=== PATIENT | female | born 1990 | race Caucasian/White ===

== ENCOUNTER → 2017-10-01 08:34 | Outpatient (CLI) | payer OTHER, SELFPAY ==
--- NOTE | 2017-10-01 | IMM_PTH ---
PATIENT: RAMYA JENNINGS LOC: [facility] U#:[id number] AGE/SX: 34/F ROOM: RE10/01/[address]: Dr. Pauline Malone MD : 1990 BED: DIS: SPEC #: [id number] RECD: 10/05/17 14:15 STATUS: MISSY EZIO #: [id number] KELLY: 10/01/17 00:[address]: Pauline Malone DEPT: IMMUNOHISTOCHEMISTRY RECD BY: Ana Salazar Tissues: B - Uterine cervix, NOS Procedures: p16 (initial) KI-67 (add) PHYSICIAN & INSTITUTION [place] [id number] SPECIMEN INFORMATION: Tissue Source: B ? Cervix at 6 o?clock Clinical Info: Abnormal pap smear Specimen Number: [id number] CPT code: 00656, 68547 METHODOLOGY: Deparaffinized sections of prefer/formalin-fixed tissue or PAP/DQ stained slides are incubated with monoclonal/polyclonal antibodies/oligonucleotide probes. Localization is made via biotin free immunoperoxidase method. Appropriate controls are performed and reacted as expected. Results on target cell population are indicated in the following table: RESULTS: ANTIBODY / CLONE RESULT Block B P16 (E6H4) positive, focal, patchy Ki-67 (30-9) positive, low These tests were developed and their performance characteristics determined by [facility]. They may not have been cleared or approved by the U.S. Food and Drug Administration. The FDA has determined that such clearance or approval is not necessary. INTERPRETATION: B. Cervix at 6 o?clock, biopsy: Mild squamous dysplasia, KATERIN I (LSIL). AM:zeny 10/06/17
--- NOTE | 2017-10-01 | CER_PTH ---
PATIENT: RAMYA JENNINGS [facility][id number] AGE/SX: 34/F ROOM: RE10/01/[address]: Dr. Pauline Malone MD : 1990 BED: DIS: SPEC #: [id number] RECD: 10/01/17 12:22 STATUS: MISSY EZIO #: [id number] KELLY: 10/01/17 00:[address]: Pauline Malone DEPT: SURGICAL PATHOLOGY RECD BY: Mohsen Mendoza Tissues: A - Uterine cervix, NOS B - Uterine cervix, NOS Procedures: Surgery Specimen Level IV HEADER OPERATION: Colposcopy PRE-OP DIAGNOSIS: Abnormal pap smear TISSUE SUBMITTED: A ? Cervix at 12 o?clock, B - Cervix at 6 o?clock MICROSCOPIC DIAGNOSIS A. Cervix at 12 o?clock, biopsy: Fragments of endocervix with chronic inflammation. B. 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 AM:zeny 10/05/17 COMMENT B. Results from immunohistochemistry ([id number]) for surrogate HPV marker (p16) will be reported separately. Case has been reviewed in consultation with Dr. Cummings who concurs with the above diagnosis. INDRA:JAMIE MICROSCOPIC DESCRIPTION Slides are reviewed. GROSS DESCRIPTION A - Received in fixative is one container labeled with the patient's name and designated 12 o'clock. The specimen consists of one irregular fragment of light tafoya soft tissue that measures 0.6 x 0.3 x 0.1 cm. The specimen is totally submitted in one cassette. B - Received in fixative is one container labeled with the patient's name and designated 6 o'clock. The specimen consists of one irregular fragment of light tafoya soft tissue that measures 0.2 x 0.2 x 0.1 cm. The specimen is totally submitted in one cassette. / JAMIE:zeny 10/04/17 TC:3 CPT: 99322 x2
== END ==
PROVIDERS: Visit Provider Obstetrics & Gynecology
DX: R87.619 Unspecified abnormal cytological findings in specimens from cervix uteri (principal)
CPT/HCPCS: 88305; 88341; 88342

== ENCOUNTER 2022-12-10 06:13 | Day surgery (SDC) | payer OTHER, BC, SELFPAY ==
[2022-12-10 06:43] VITALS: BP 118/69; PULSE 72; RESP 16; TEMP 36.3; O2SAT 99; BMI 31.6
[2022-12-10 06:52] LABS: Internal QC Validated? YES +Cl - CLEAR BKGD; Pregnancy, Urine Negative Negative
[2022-12-10] MEDS: Lactated Ringers 1,000 ML 15 ML IV (06:52)
[2022-12-10] MEDS: Cefazolin 2 GM in 0.9% Normal Saline (100mL Bag) 100 ML IV (07:42)
[2022-12-10] MEDS: Epinephrine (1 mg/ml) 1 MG/ML VIAL (08:01)
[2022-12-10] MEDS: Bupivacaine 0.25% 30 ML Vial (10:04)
[2022-12-10 10:29] VITALS: BP 118/69; BP 138/89; PULSE 67; RESP 16; TEMP 36.3; O2SAT 100
[2022-12-10] MEDS: Ketorolac 30 MG/ML Syringe IV (10:37)
[2022-12-10 10:45] VITALS: BP 118/69; BP 132/99; PULSE 75; RESP 16; O2SAT 95
--- NOTE | 2022-12-10 10:47 | PCM.DC ---
Discharge Instructions Follow Up Care Test Results: Test results from this visit will be discussed in further detail at your follow-up appointment, if applicable. Discharge Plan Admission Primary Reason for Your Visit: Left knee surgery Attending Provider: Lul Espinal Primary Care Provider: Ace Mac EXTERMINATION SUPERVISOR Instructions Additional Instructions / Restrictions: Follow preprinted instructions Discharge Orders/Prescriptions Prescriptions: New oxycodone 5 mg tablet 5 mg PO Q4H PRN (Reason: pain) 7 Days Qty: 42 0RF Continued cholecalciferol (vitamin D3) [Vitamin D3] 25 mcg (1,000 unit) capsule 50 mcg PO DAILY Referrals / Follow Up: Lul Espinal DO [Med Staff - Active Staff] - Disposition Disposition (needs filled in before D/C Order can be placed): Home, Self Care
--- NOTE | 2022-12-10 10:47 | PCM.OPRPT ---
Report of Operation Date of Procedure: 12/10/22 Description of Surgical Findings:: Preoperative diagnosis: 1. Left knee anterior cruciate ligament rupture 2. Left knee bucket-handle medial meniscus tear Postoperative diagnosis: 1. Left knee anterior cruciate ligament rupture 2. Left knee bucket-handle medial meniscus tear Procedure: 1. Diagnostic and operative Left knee arthroscopy with quadriceps autograft anterior cruciate ligament reconstruction 2. Arthroscopic left knee medial meniscus repair Primary Surgeon: Lul Espinal DO Manager Configuration: Cynthia Petersen PA-C Anesthesia: General LMA with femoral nerve block Anesthesiologist: DEJAH Moncada Dr. Complications: None apparent Estimated blood loss: 25 cc IV fluids: Per anesthesia record Implants: Arthrex tight rope femoral fixation with ABS button tibial sided fixation, suture tape internal brace Arthrex fiber stitch all inside all suture meniscal repair system x4 Arthrex 2-0 FiberWire x3 Intraoperative findings: Complete ACL rupture, bucket-handle medial meniscus tear Preoperative indications: This is an otherwise healthy 32-year-old female seen in the outpatient setting diagnosed with a left knee anterior cruciate ligament rupture and bucket-handle medial meniscus tear. She sustained injury falling down stairs 5 months ago. Patient was seen in [place] and an MRI confirmed the diagnosis. She rehabbed her knee and regain full motion and excellent strength. She did experience considerable instability and avoidance of specific activities after rehab. Operative intervention in the form of left knee anterior cruciate ligament reconstruction was recommended. We discussed graft options. We settled on a quadriceps autograft. The risk, benefits, alternatives to the procedure was reviewed with the patient at length. Risks included but were not limited to bleeding, wound complications, infection, loss of life or limb, need for additional surgery, continued instability, persistent pain, posttraumatic arthritis, stiffness, difficulty returning to sport, risk of anesthesia, DVT or PE, neurovascular injury. Patient expressed understanding his risks and wished to proceed with surgery. Informed consent obtained in the office. Description of procedure: Patient was identified in preoperative holding area by name, medical record number, and date of . The operative extremity was marked. Informed consent confirmed with the patient. All questions were answered to patient satisfaction. At time of her procedure, patient was brought to the operative suite and positioned supine on a standard operating table. All bony prominences were well-padded. General anesthesia was induced and laryngeal mask airway placed. After securing the tube, I placed a well-padded pneumatic tourniquet on the upper thigh of the operative extremity. I first examined the leg under anesthesia. There was a positive pivot shift and Christ. We then positioned the operative extremity in a circumferential arthroscopic leg muniz. A well-leg muniz was placed on the patient's nonoperative thigh. We then dropped the foot of the bed 90 degrees. We then prepped and draped the operative lower extremity in a normal, sterile orthopedic fashion. We performed a timeout with all parties in attendance in agreement with the side, site, operation to be performed. No concerns were voiced and we elected to proceed with surgery. 2 g Ancef was administered for antibiotic prophylaxis prior to the incision by the anesthesia staff. Given the positive provocative findings and positive MRI findings consistent with ACL rupture, I elected to harvest the graft first. I planned a midline incision overlying the quadriceps tendon approximately 5 cm in length. Skin was sharply incised with a 15 blade scalpel through skin and subcutaneous tissue. Subcutaneous fat was cleared exposing the peritenon of the quadriceps. The quadriceps peritenon was carefully elevated and dissected free from the underlying tendon, in line with the skin incision. I then identified the insertion of the tendon on the superior pole of the patella. I utilized the parallel cutting guide 9 mm in diameter to establish the width of our tendon harvest. I sharply dissected the insertion off of the patella. I elevated a partial thickness graft. After gaining approximately 4 cm in length, I performed a whipstitch for fixation into the tendon with a FiberWire suture. I then utilized a arauz elevator and scalpel to continue to elevate the graft. I was able to elevate the tendon graft free to a length of 67 millimeters. This was cut sharply with the cigar cutting instrument from [employer]. The void in the quadriceps was then closed with 0 Vicryl suture. Peritenon was closed with 2-0 Vicryl suture in watertight fashion. The graft was moved to the back table where my elementary assistant teacher, Mrs. Petersen, began to prepare the graft. She prepared a standard all inside fixation with a tight rope attachment on the femoral side. A suture tape was added to the construct to act as an internal brace. The graft was pretensioned. After the graft was prepared, it was left under tension and kept fresh with a moist sponge. 8 mm was the final graft diameter for both the tibial and femoral sides. During time of graft preparation, I commenced diagnostic and operative arthroscopy. Establish a standard anterolateral portal with an 11 blade scalpel. Blunt tipped trocar and cannula was inserted through this portal as the knee was brought into full extension into the patellofemoral joint. Trocar was removed and arthroscope introduced. Examination of the knee revealed pristine patellofemoral compartment. Medial lateral gutters were unremarkable. Medial compartment was entered with a valgus stress. Bucket-handle tearing was noted in the medial compartment. Minimal scuffing was noted along the femoral condyle, otherwise cartilage was pristine. I entered the intercondylar notch. ACL rupture was confirmed with an empty lateral wall. Lateral compartment was entered. The leg was placed in a [id number] position. Lateral compartment was pristine and meniscus stable. I returned my attention to the medial compartment. A meniscal rasp was used to debride the longitudinal tear. The meniscus was resting in a relatively reduced position. I then proceeded with sequential fixation of the medial meniscus placing 4 horizontal mattress sutures utilizing the Arthrex fiber stitch all inside suture repair system. Sutures were tensioned and cut flush with the meniscus. This achieved excellent stability and reduction from the mid body to the posterior horn. With the more anterior portion of the tear, elected to perform an outside in repair technique. I localized with a spinal needle and then performed a 2 cm longitudinal incision overlying the anterior medial knee. I bluntly dissected down to the level of the retinaculum. I then used a spinal needle to pass a loop of 0 PDS suture superior to the meniscal tear. A second spinal needle was placed inferior to the PDS needle. 2-0 FiberWire was then placed through the second spinal needle and retrieved out the anterior medial portal along with the PDS loop. PDS loop was used to shuttle the FiberWire. A vertical mattress repair stitch was then achieved. Suture was tensioned and tied and cut flush with the knot. Similar repairs were sequentially carried out working anteriorly with a total of 3 outside in vertical mattress sutures placed with 2-0 FiberWire. The medial meniscus was probed and was stable following repair. The remnants of the ACL was then encountered. ACL rupture was confirmed. I resected the remaining portion of the ACL with a radial resector, marking the footprints with the radiofrequency ablator. I then performed a notchplasty in standard fashion with a 5.5 mm bur. I then introduced the flip cutter drill guide through the anterior lateral portal and the camera was moved to the anterior medial portal. I positioned the drill guide to allow for 2 mm of back wall at approximately the 1:30 position on the lateral wall of the notch. I made a stab incision along the lateral thigh in line with the planned trajectory of the flip cutter. Skin, subcutaneous tissue, and IT band were sharply incised and dilated. Drill guide and drill were then passed down to the level of the lateral femoral cortex. We drilled through the lateral cortex into the intercondylar notch at the planned trajectory location. The flip cutter was then deployed to a diameter of 8 mm. The flip cutter was then used to retrograde drill the femoral socket to a depth of 35 mm. Flip cutter was then retracted and pulled from the wound. A fiber stick was then introduced through the femoral socket. The fiber wire was then retrieved out the anterior lateral portal and luggage tagged. Loose pieces of bone was debrided with a radial resector from the knee. I then switched the camera to the lateral portal. I placed the tibial drill guide through the anterior medial portal planning be tunnel placement at the red devil footprint of the ACL. I sharply incised the skin with an 11 blade scalpel through skin and subcutaneous tissues over the anterior medial tibia with planned trajectory of the drill course. I then drilled through the anterior medial tibia into the joint at the planned trajectory. I deployed the flip cutter to a diameter of 8 mm and drilled retrograde fashion for the tibial socket, approximately 30 mm in length. I then reversed the flip cutter to 3.5 mm and removed from the joint. I placed a tiger stick through the tibial tunnel and retrieved out the anterior medial portal. I then brought the graft to the surgical field. I retrieved the loop end of the femoral side shuttling suture through the anterior medial portal and attached to the suture ends of the femoral side button of the graft. We then passed the sutures and button through the femoral tunnel. The tight rope button was then deployed and engaged the lateral femoral cortex. We then sequentially tightened the graft to docket into the femoral tunnel. I then retrieve the passing suture for the tibial tunnel at the anteromedial portal and utilized it to pass the tibial side of the graft/sutures. Sutures were then retrieved out the tibial tunnel. I placed an ABS button through the tight rope mechanism is sequentially tightened to appropriate, maximum tension. The knee was then cycled 25 times to prevent creep. Final tightening was performed in full extension. The internal brace was tensioned and tied in full extension. I tied 3 half hitch knots over the tibial button with the tight rope. Sutures were then cut. The knee was thoroughly debrided lavage of any loose pieces of bone. Final images were obtained. Tourniquet was deflated. Hemostasis was excellent. Portal sites were anesthetized with 20 cc total of 0.25% plain bupivacaine. Stab incisions were closed with interrupted lionhb-od-curof 4-0 nylon suture. Graft harvest incision was closed with interrupted buried 3-0 Vicryl suture in the dermis and a running subcuticular 4-0 Monocryl suture. Dermabond was then applied. A bulky sterile compression dressing was applied. Patient was placed in a T ROM brace locked in full extension with a limited set from 0 to 90 degrees. Need for skilled elementary assistant teacher: Cynthia Petersen PA-C was critical to the outcome of the case. During the course of the procedure the physician elementary assistant teacher played a vital role. Her intimate knowledge of my steps in the procedure aided in safe and expedient completion of the procedure. The PA played a vital role in positioning particularly in obtaining the appropriate positioning. The PA was also vital in the retraction of soft tissues during the exposure and protecting vital structures. The PA was also vital with drilling bone tunnels, graft passage, and graft preparation. She also played a vital role in closure and brace application with my direct supervision. Postoperative plan: Weightbearing as tolerated left lower extremity, knee brace locked in full extension when ambulating. 0-90 degrees range of motion. Follow-up in 2 weeks for wound check and suture removal Plan initiate physical therapy tomorrow Aspirin 81 mg twice daily for DVT prophylaxis Multimodal pain management with oxycodone, acetaminophen, and ibuprofen Ice and elevation to the operative knee
[2022-12-10 10:58] VITALS: BP 118/69; BP 135/91; PULSE 77; RESP 16; TEMP 36.4; O2SAT 100
[2022-12-10 11:20] VITALS: BP 118/69
[2022-12-10 12:00] VITALS: BP 118/69; BP 125/80; PULSE 73; RESP 16; TEMP 37; O2SAT 99
== END 2022-12-10 13:19 | disposition home or self-care (01) ==
LOC: SDC 06:15 → AC 06:17
PROVIDERS: Anesthesiology; PCP Nurse Practitioner Primary Care; Referring Provider Student in an Organized Health Care Education/Training Program; Visit Provider Student in an Organized Health Care Education/Training Program
PROC: (CPT 29888; principal; 2022-12-10 07:10)
DX: S83.512A Sprain of anterior cruciate ligament of left knee, initial encounter (principal); S83.242A Other tear of medial meniscus, current injury, left knee, initial encounter; E66.8 Other obesity; Z68.31 Body mass index [BMI] 31.0-31.9, adult; W18.30XA Fall on same level, unspecified, initial encounter; Y93.66 Activity, soccer; Y92.322 Soccer field as the place of occurrence of the external cause
CPT/HCPCS: 29888; 29882; 01400; 81025; C1713; J7120; J2405

== ENCOUNTER 2023-10-08 21:11 | Emergency (ER) | payer BC, SELFPAY ==
[2023-10-08 21:12] VITALS: BP 152/97; PULSE 77; RESP 16; TEMP 36; O2SAT 99; BMI 32.9
--- NOTE | 2023-10-08 21:30 | RAD_ITS ---
EXAM: XR LEFT ELBOW COMPLETE, 3 OR MORE VIEWS CLINICAL INDICATION: injury TECHNIQUE: Frontal, lateral and oblique views of the left elbow. COMPARISON: No relevant prior studies available. FINDINGS: BONES/JOINTS: There is an anterior dislocation of the humerus in relation to the radius and ulna. No fractures are identified. There is no displacement of the anterior or posterior fat pads. No destructive or sclerotic lesions. SOFT TISSUES: Unremarkable. No soft tissue swelling or gas. No radiopaque foreign body. RAD/Elbow 2 Views IMPRESSION: Dislocation of the elbow. There are no fractures. Electronically Signed: Aniceto Hudson MD at 21:52 EDT ,
--- NOTE | 2023-10-08 21:44 | RAD_ITS ---
EXAM: XR LEFT ELBOW COMPLETE, 3 OR MORE VIEWS CLINICAL INDICATION: post reduction TECHNIQUE: Frontal, lateral and oblique views of the left elbow. COMPARISON: 10/08/2023 at 2134 hours FINDINGS: BONES/JOINTS: There has been a closed reduction of the elbow. The elbow joint space is maintained in anatomic alignment. There are no fractures. There is no displacement of the anterior or posterior fat pads. No destructive or sclerotic lesions. SOFT TISSUES: Unremarkable. No soft tissue swelling or gas. No radiopaque foreign body. RAD/Elbow min 3 Views IMPRESSION: Closed reduction of an elbow dislocation. Alignment is anatomic. Electronically Signed: Aniceto Hudson MD at 22:40 EDT ,
[2023-10-08] MEDS: Ondansetron 4 MG/2 ML Vial IV (22:12)
[2023-10-08] MEDS: Propofol 200 MG/20 ML Vial IV BOLUS (22:12)
[2023-10-08] MEDS: fentaNYL 100 MCG/2 ML Ampul 50 MCG IV (22:12)
[2023-10-08 22:14] VITALS: BP 162/103; PULSE 81; RESP 20; TEMP 36.6; O2SAT 100
--- NOTE | 2023-10-08 22:15 | EX.ED.UPPERE ---
HPI History of Present Illness Chief Complaint: Upper Extremity Injury Informant: patient Narrative Narrative: 33-year-old female was playing soccer tonight when she fell off to her left side. She tried to catch herself. She notes pain in the left elbow. She is right-handed. She denies any hand symptoms. No pain in the shoulder or collarbone. [facility] Medical History Injury of left anterior cruciate ligament Wears glasses Anemia Hx of gastritis Non-smoker Leg cramps History of pain when walking Abnormal Pap smear of cervix Home Medications ?Medication ?Instructions ?Recorded ?Last Taken ?Type hydrocodone-acetaminophen 5-325mg 1 tab PO Q6H PRN PRN Pain 3 days 10/08/23 Unknown Rx 5mg-325mg #12 TABLETS Allergy/AdvReac Type Severity Reaction Status Date / Time No Known Allergies Allergy Verified 10/08/23 21:16 Family History Mother Hypertension Diabetes Father Diabetes Surgical History No history of previous surgery Social History adopted: No household members: family housing: apartment number of children: 0 current occupational status: employed current occupation: [employer] current occupational exposures/hazards: No pets and animals: No history of recent travel: No Smoking Status: Never smoker alcohol intake: never substance use type: does not use seatbelt use: always do you feel safe at home: Yes ROS ROS ED Constitutional Constitutional ED: Denies chills or weight loss Eyes Eyes: Denies change in vision or diplopia ENT ENT ED: Denies ear pain, rhinorrhea or sore throat Cardiovascular Cardiovascular: Denies chest pain, orthopnea, palpitations or racing heartbeat Respiratory/Chest Respiratory/Chest: Denies cough, dyspnea or orthopnea Gastrointestinal Gastrointestinal: Denies abdominal pain, diarrhea, nausea or vomiting Genitourinary Genitourinary ED: Denies dysuria, hematuria or urinary frequency Musculoskeletal Musculoskeletal: Reports other Details: See history of present illness ; Denies arthralgias or myalgias Integumentary Denies abscess or rash Neurologic Neurologic: Denies headache(s) or weakness Psychiatric Psychiatric: Denies anxiety, depression, suicidal ideation or suicidal thoughts Endocrine Endocrinology: Denies polydipsia, polyphagia or polyuria Allergic/Immunologic Allergic/Immunologic ED: Denies mouth swelling, tongue swelling or urticaria EXAM Physical Exam Const Vital Signs: 10/08/23 21:12 Temperature 96.8 F L Temperature Source Temporal Pulse Rate 77 Respiratory Rate 16 Blood Pressure 152/97 H Blood Pressure Mean 115 Pulse Ox 99 Positive well nourished and well developed General Appearance ED: well developed HEENT Reports normocephalic, head/scalp atraumatic and moist mucous membranes Eyes PERRL and EOMs intact bilaterally Neck no lymphadenopathy, supple and no JVD Resp normal respiratory effort and clear to auscultation bilaterally Cardio regular rate, regular rhythm and no murmurs GI normal to inspection, nondistended, normoactive bowel sounds and non-tender Palpation: soft Back/Spine no CVA tenderness and normal ROM Extremity Extremity Narrative: Limited range of motion to the left elbow. Hand appears neurovascularly intact. There appears to be a posterior elbow dislocation. General Extremety ED: Negative for edema General Extremity: Negative for edema Neuro oriented x3 and CN's II-XII intact bilaterally Sensorium / Orientation: alert Motor Exam: strength 5/5 throughout Psych mental status grossly normal Mood & Affect: Negative for depressed or tearful Skin no rashes or lesions noted and no wounds MDM MDM MDM Narrative Medical decision making narrative: Differential diagnosis includes but not limited to fracture dislocation ligamentous tear neurovascular injury. My independent interpretation of the plain films of the left elbow is a posterior dislocation with no obvious fracture. Patient provided informed consent for the use of procedural sedation using propofol for reduction. Patient received 1 mg/kg bolus of propofol followed by aliquots to achieve adequate sedation. Once adequate sedation was achieved I was able to successfully reduce the elbow using standard technique. Postreduction films were obtained before splinting. I my independent interpretation of these postreduction films is no acute fracture. The patient was placed in a well-padded posterior Ortho-Glass splint made by this physician. The patient's ring was removed prior to splinting and given to significant other for safekeeping. Patient was made aware of this when she was fully awake. Patient recovered without any hypoxia hypotension or apnea. She will be discharged home with orthopedic follow-up return if worsening or concerns History & Record Review Discussion w/independent historian: Patient Radiography Diagnostic Testing: Clinical Impression(s) from Imaging Studies Elbow X-Ray 10/08/23 21:30 IMPRESSION: Dislocation of the elbow. There are no fractures. Electronically Signed: Aniceto Hudson MD at 21:52 EDT Reading Location ID and State: [facility] / [place] Tel , Service support , Discharge Plan Triage Chief Complaint: Upper Extremity Injury ED Provider: Jhony Che Dx/Rx/DC Orders Clinical Impression: Fall, Closed posterior dislocation of left elbow Instructions: ED Elbow Dislocation Prescriptions: New hydrocodone-acetaminophen 5-325 mg tablet 1 tab PO Q6H PRN PRN (Reason: Pain) 3 Days Qty: 12 0RF Primary Care Provider: Ace Mac NP Referrals: Lavell Martin MD [Med Staff - Active Staff] - As soon as possible Ace Mac PYROTECHNIC ASSEMBLER, PYROTECHNIC ASSEMBLER-C [Primary Care Provider] - Print Language: Stateless Disposition Disposition: Home, Self Care
[2023-10-08 22:23] VITALS: BP 147/98; BP 149/104; PULSE 110; PULSE 92; PULSE 94; RESP 19; RESP 21; O2SAT 100; O2SAT 22; O2SAT 37
[2023-10-08 22:30] VITALS: BP 144/99; O2SAT 100
[2023-10-08 22:33] VITALS: BP 139/94; O2SAT 100
[2023-10-08 23:00] VITALS: BP 153/93; PULSE 87; RESP 24; TEMP 36.6; O2SAT 99
== END 2023-10-08 23:15 | disposition home or self-care (01) ==
PROVIDERS: Emergency Provider Emergency Medicine; PCP Nurse Practitioner Primary Care; Visit Provider Emergency Medicine
DX: S53.125A Posterior dislocation of left ulnohumeral joint, initial encounter (principal); W18.30XA Fall on same level, unspecified, initial encounter; Y93.66 Activity, soccer; Y92.322 Soccer field as the place of occurrence of the external cause
CPT/HCPCS: 24600; 73070; 73080; 96374; 96375; 99283; J7030; A4216; J2405

== ENCOUNTER 2023-10-19 18:33 | Emergency (ER) | payer BC, SELFPAY ==
[2023-10-19] VITALS (9 sets, daily range): BP systolic 121–154; BP diastolic 71–94; PULSE 65–103; RESP 14–84; TEMP 36.3–36.6; O2SAT 18–100; BMI 26.8
--- NOTE | 2023-10-19 19:15 | RAD_ITS ---
STUDY: X-RAY - LEFT ELBOW REASON FOR EXAM: Female, 33 years old. INJURY/PAIN TECHNIQUE: 2 view(s) of the elbow. COMPARISON: None. FINDINGS: Normal visualized humerus, radius and ulna. There is posterior dislocation of the radiocapitellar and ulnotrochlear articulations. There is small increased density fragment in the joint space. The soft tissue structures are unremarkable. RAD/Elbow 2 Views IMPRESSION: Recurrent dislocation. Small fracture fragment. Electronically Signed: Nathen Ross MD at 19:52 EDT ,
--- NOTE | 2023-10-19 20:00 | EX.ED.UPPERE ---
HPI History of Present Illness Chief Complaint: Upper Extremity Injury Detail of Chief Complaint: Patient presents because of posterior left elbow dislocation Informant: patient and spouse/S.O. Occured/Mechanism Comment: Patient followed up with orthopedics. They remove the splint. When they remove the splint she redislocated. Onset/Context/Timing Onset: Today Context: Sudden Onset Timing: Continuous Location: Left elbow Current Severity: Mild Maximum Severity: Severe Worsened by: Attempt at flexion, extension Relieved by: Nothing Associated Symptoms Associated Symptoms: Positive for Loss of Funtion Narrative Narrative: Patient is a 33-year-old woman. She was seen on September 07. She sustained injury to her left elbow playing soccer. She was found to have a posterior dislocation by Dr. Almeida. She was successfully reduced. She was placed in a long-arm splint. She was referred to [facility]. She went to [facility] today. She was seen this morning. After the splint was removed she redislocated on imaging. She was told to come to the emergency room. She did not present to the emergency room until after 6 PM. She apparently went home to do housework and she ate and drank. She drank 15 minutes before coming in. She presented with a disc. There is no images on the disc. Had radiology attempt to open and they agree there are no images. Patient denies paresthesia, anesthesia or motor weakness. Prior similar symptoms: Yes Recent Illness/Hospitalization: Yes [facility] Medical History Injury of left anterior cruciate ligament Wears glasses Anemia Hx of gastritis Non-smoker Leg cramps History of pain when walking Abnormal Pap smear of cervix Home Medications ?Medication ?Instructions ?Recorded ?Last Taken ?Type hydrocodone-acetaminophen 5-325mg 1 tab PO Q6H PRN PRN Pain 3 days 10/08/23 Unknown Rx 5mg-325mg #12 TABLETS ergocalciferol (vitamin D2) 1,250 1,250 mcg PO QWEEK 10/19/23 Unknown History mcg (50,000 unit) capsule oxycodone-acetaminophen 5 mg-325 1 tab PO Q6H PRN PRN Pain 3 days 10/19/23 Unknown Rx mg tablet #12 TABLETS Allergy/AdvReac Type Severity Reaction Status Date / Time No Known Allergies Allergy Verified 07/19/24 21:16 Family History Mother Hypertension Diabetes Father Diabetes Surgical History No history of previous surgery Social History adopted: No household members: family housing: apartment number of children: 0 current occupational status: employed current occupation: [employer] current occupational exposures/hazards: No pets and animals: No history of recent travel: No Smoking Status: Never smoker alcohol intake: never substance use type: does not use seatbelt use: always do you feel safe at home: Yes ROS ROS ED Musculoskeletal Musculoskeletal: Reports other Details: Deformity left elbow otherwise negative. Neurologic Neurologic: Denies paresthesias or weakness Hematologic/Lymphatic Hematologic/Lymphatic: Denies easy bleeding or easy bruising EXAM Physical Exam Const Vital Signs: 10/19/23 18:34 Temperature 97.3 F L Temperature Source Temporal Pulse Rate 65 Respiratory Rate 16 Blood Pressure 137/81 H Blood Pressure Mean 99 Pulse Ox 98 Oxygen Delivery Method Room Air Positive well nourished and well developed Constitutional Narrative: Patient appears uncomfortable. She is in a sling. General Appearance ED: well developed; Negative for cyanotic, diaphoretic or NAD HEENT Reports moist mucous membranes normocephalic and atraumatic Eyes PERRL and EOMs intact bilaterally Neck full ROM Chest Wall inspection of chest normal Resp normal respiratory effort and clear to auscultation bilaterally Cardio regular rate, regular rhythm, S1 normal heart sound, S2 normal heart sound and no murmurs Extremity Negative for normal to inspection Extremity Narrative: Patient's left upper extremity reveals deformity to the elbow. Axillary, median, radial and ulnar function intact. Radial pulses palpable. Neuro oriented x3 and CN's II-XII intact bilaterally Sensorium / Orientation: alert Psych mental status grossly normal Skin Lesions: no lesions Rashes: no rashes Trauma: no lacerations or abrasions MDM MDM MDM Narrative Medical decision making narrative: X-ray was obtained. Patient was consented for procedural sedation. Radiography Chest X-Ray - ED: Read by ED Physician (Three-view x-ray of the elbow reveals a posterior dislocation. There is no evidence of fracture. This is dependently reviewed interpreted by me at 2001.) Treatment and Re-Evaluation Narrative: Spoke with Dr. Martin. Apparently no one in the group is able to care for her. She will need an Ex-Fix. He informed he did speak with Dr. Hankins. Will contact him and inform him that she has an unstable dislocation. Spoke with Dr. Hankins. He agrees patient is expected to. That equipment is not available at [facility]. He would like patient to call the office tomorrow and he will make arrangement for her to be seen and have her elbow reduced and placed in an Ex-Fix at her. He recommended a sling at this time. Procedures Procedural Sedation 1 (Initial Baseline): Consent Signed: Yes Any Problems With Anesthesia: No You/Your family experience fever (hyperthermia) w/anesthesia: No Sedation medication: Propofol Dose: 120 (Milligrams) Total Moderate Sedation Units: 10 (10.5 minutes) Maliampati Score: Class I ASA Classification: I Discharge Plan Triage Chief Complaint: Upper Extremity Injury ED Provider: Ino Yoon Dx/Rx/DC Orders Clinical Impression: Closed traumatic posterior dislocation of left elbow joint Prescriptions: New oxycodone-acetaminophen 5-325 mg tablet 1 tab PO Q6H PRN PRN (Reason: Pain) 3 Days Qty: 12 0RF No Action hydrocodone-acetaminophen 5-325 mg tablet 1 tab PO Q6H PRN PRN (Reason: Pain) 3 Days Qty: 12 0RF ergocalciferol (vitamin D2) 1,250 mcg (50,000 unit) capsule 1,250 mcg PO QWEEK Primary Care Provider: Ace Mac NP Referrals: Junior Hankins MD [Med Staff - Active Staff] - 1 Day for another exam Ace Mac NP, SINGLE POINTED OPERATOR-C [Primary Care Provider] - Activity Restrictions/Additional Instructions: Call Dr. Junior Hankins's office tomorrow morning. He will make arrangements for you to get your elbow surgically repaired Print Language: Persian Disposition Disposition: Home, Self Care
[2023-10-19] MEDS: Propofol 200 MG/20 ML Vial IV BOLUS (22:48)
--- NOTE | 2023-10-19 22:50 | RAD_ITS ---
STUDY: X-RAY - LEFT ELBOW REASON FOR EXAM: Female, 33 years old. Post reduction TECHNIQUE: Single lateral view(s) of the elbow. COMPARISON: Earlier the same day. FINDINGS: Normal visualized humerus, radius and ulna. There is stable posterior dislocation at the radiocapitellar and ulnotrochlear articulations. There is punctate fracture fragment in the joint. The soft tissue structures are unremarkable. RAD/Elbow 2 Views IMPRESSION: Persistent elbow dislocation. Electronically Signed: Nathen Ross MD at 23:17 EDT ,
--- NOTE | 2023-10-19 23:21 | EX.ED.UPPERE ---
HPI History of Present Illness Chief Complaint: Upper Extremity Injury [facility] Medical History Injury of left anterior cruciate ligament Wears glasses Anemia Hx of gastritis Non-smoker Leg cramps History of pain when walking Abnormal Pap smear of cervix Home Medications ?Medication ?Instructions ?Recorded ?Last Taken ?Type hydrocodone-acetaminophen 5-325mg 1 tab PO Q6H PRN PRN Pain 3 days 10/08/23 Unknown Rx 5mg-325mg #12 TABLETS ergocalciferol (vitamin D2) 1,250 1,250 mcg PO QWEEK 10/19/23 Unknown History mcg (50,000 unit) capsule oxycodone-acetaminophen 5 mg-325 1 tab PO Q6H PRN PRN Pain 3 days 10/19/23 Unknown Rx mg tablet #12 TABLETS Allergy/AdvReac Type Severity Reaction Status Date / Time No Known Allergies Allergy Verified 10/08/23 21:16 Family History Mother Hypertension Diabetes Father Diabetes Surgical History No history of previous surgery Social History adopted: No household members: family housing: apartment number of children: 0 current occupational status: employed current occupation: [employer] current occupational exposures/hazards: No pets and animals: No history of recent travel: No Smoking Status: Never smoker alcohol intake: never substance use type: does not use seatbelt use: always do you feel safe at home: Yes EXAM Physical Exam Const Vital Signs: 10/19/23 18:34 10/19/23 20:34 10/19/23 22:00 Temperature 97.3 F L Temperature Source Temporal Pulse Rate 65 74 82 Pulse Rate [1 (Initial Baseline)] Pulse Rate [2] Pulse Rate [3] Respiratory Rate 16 16 16 Respiratory Rate [1 (Initial Baseline)] Respiratory Rate [2] Respiratory Rate [3] Blood Pressure 137/81 H 124/78 H 121/71 H Blood Pressure [1 (Initial Baseline)] Blood Pressure [2] Blood Pressure [3] Blood Pressure Mean 99 93 87 Pulse Ox 98 98 99 Oxygen Delivery Method Room Air Room Air Room Air Oxygen Delivery Method [1 (Initial Baseline)] Oxygen Delivery Method [2] Oxygen Delivery Method [3] Oxygen Flow Rate (L/min) [1 (Initial Baseline)] Oxygen Flow Rate (L/min) [2] 10/19/23 22:45 10/19/23 22:46 10/19/23 23:01 Temperature 98 F Temperature Source Pulse Rate 73 Pulse Rate [1 (Initial Baseline)] 89 Pulse Rate [2] 103 H Pulse Rate [3] 90 Respiratory Rate 16 Respiratory Rate [1 (Initial Baseline)] 84 H Respiratory Rate [2] 18 Respiratory Rate [3] 17 Blood Pressure 128/88 H Blood Pressure [1 (Initial Baseline)] 128/76 H Blood Pressure [2] 154/94 H Blood Pressure [3] 141/84 H Blood Pressure Mean Pulse Ox 97 Oxygen Delivery Method Room Air Room Air Oxygen Delivery Method [1 (Initial Baseline)] Nasal Cannula Oxygen Delivery Method [2] Nasal Cannula Oxygen Delivery Method [3] Nasal Cannula Oxygen Flow Rate (L/min) [1 (Initial Baseline)] 2 Oxygen Flow Rate (L/min) [2] 2 10/19/23 23:06 10/19/23 23:11 Temperature Temperature Source Pulse Rate Pulse Rate [1 (Initial Baseline)] Pulse Rate [2] Pulse Rate [3] Respiratory Rate Respiratory Rate [1 (Initial Baseline)] Respiratory Rate [2] Respiratory Rate [3] Blood Pressure Blood Pressure [1 (Initial Baseline)] Blood Pressure [2] Blood Pressure [3] Blood Pressure Mean Pulse Ox Oxygen Delivery Method Room Air Room Air Oxygen Delivery Method [1 (Initial Baseline)] Oxygen Delivery Method [2] Oxygen Delivery Method [3] Oxygen Flow Rate (L/min) [1 (Initial Baseline)] Oxygen Flow Rate (L/min) [2] MDM MDM Radiography Chest X-Ray - ED: 2 View (X-ray was read at 1900. 3 views were obtained. Patient has a posterior left elbow dislocation. No obvious fracture noted.) and - (Single view was obtained after attempted reduction. The elbow was unstable and even though I do appreciate a click when I flex at the elbow to apply a splint it really dislocates. This was confirmed on x-ray.) Diagnostic Testing: Clinical Impression(s) from Imaging Studies Elbow X-Ray 10/19/23 19:15 IMPRESSION: Recurrent dislocation. Small fracture fragment. Electronically Signed: Nathen Ross MD at 19:52 EDT , Elbow X-Ray 10/19/23 22:50 IMPRESSION: Persistent elbow dislocation. Electronically Signed: Nathen Ross MD at 23:17 EDT , Discharge Plan Triage Chief Complaint: Upper Extremity Injury ED Provider: Ino Yoon Dx/Rx/DC Orders Clinical Impression: Closed traumatic posterior dislocation of left elbow joint Prescriptions: New oxycodone-acetaminophen 5-325 mg tablet 1 tab PO Q6H PRN PRN (Reason: Pain) 3 Days Qty: 12 0RF No Action hydrocodone-acetaminophen 5-325 mg tablet 1 tab PO Q6H PRN PRN (Reason: Pain) 3 Days Qty: 12 0RF ergocalciferol (vitamin D2) 1,250 mcg (50,000 unit) capsule 1,250 mcg PO QWEEK Primary Care Provider: Ace Mac NP Referrals: Junior Hankins MD [Med Staff - Active Staff] - 1 Day for another exam Ace Mac NP, CH[facility] C[facility] ASSISTANT DIRECTOR-C [Primary Care Provider] - Activity Restrictions/Additional Instructions: Call Dr. Junior Hankins's office tomorrow morning. He will make arrangements for you to get your elbow surgically repaired Print Language: Kittitian Disposition Disposition: Home, Self Care
--- NOTE | 2023-10-19 23:26 | CONS.ORTHO ---
HPI Consult Data Date of Consult: 10/19/23 HPI Narrative HPI Narrative: RAMYA COLUNGA, is a 33 F who presents called at 1120pm for chronic unstable elbow dislocation. originally had closed reduction a week ago, presented with re dislocation this morning, waited to return to hospital in the evening after making dinner for repeat attemp closed reduction but remains unstable. nvi to ulnar nerve and other UE nerves per dr rodriguez. [facility] Medical History Injury of left anterior cruciate ligament Wears glasses Anemia Hx of gastritis Non-smoker Leg cramps History of pain when walking Abnormal Pap smear of cervix Home Medications ?Medication ?Instructions ?Recorded ?Last Taken ?Type hydrocodone-acetaminophen 5-325mg 1 tab PO Q6H PRN PRN Pain 3 days 10/08/23 Unknown Rx 5mg-325mg #12 TABLETS ergocalciferol (vitamin D2) 1,250 1,250 mcg PO QWEEK 10/19/23 Unknown History mcg (50,000 unit) capsule oxycodone-acetaminophen 5 mg-325 1 tab PO Q6H PRN PRN Pain 3 days 10/19/23 Unknown Rx mg tablet #12 TABLETS Allergy/AdvReac Type Severity Reaction Status Date / Time No Known Allergies Allergy Verified 10/08/23 21:16 Family History Mother Hypertension Diabetes Father Diabetes Surgical History No history of previous surgery Social History adopted: No household members: family housing: apartment number of children: 0 current occupational status: employed current occupation: [employer] current occupational exposures/hazards: No pets and animals: No history of recent travel: No Smoking Status: Never smoker alcohol intake: never substance use type: does not use seatbelt use: always do you feel safe at home: Yes Vital Signs Vital Signs Vital Signs: 10/19/23 18:34 10/19/23 20:34 10/19/23 22:00 Temperature 97.3 F L Temperature Source Temporal Pulse Rate 65 74 82 Pulse Rate [1 (Initial Baseline)] Pulse Rate [2] Pulse Rate [3] Respiratory Rate 16 16 16 Respiratory Rate [1 (Initial Baseline)] Respiratory Rate [2] Respiratory Rate [3] Blood Pressure 137/81 H 124/78 H 121/71 H Blood Pressure [1 (Initial Baseline)] Blood Pressure [2] Blood Pressure [3] Blood Pressure Mean 99 93 87 Pulse Ox 98 98 99 Oxygen Delivery Method Room Air Room Air Room Air Oxygen Delivery Method [1 (Initial Baseline)] Oxygen Delivery Method [2] Oxygen Delivery Method [3] Oxygen Flow Rate (L/min) [1 (Initial Baseline)] Oxygen Flow Rate (L/min) [2] 10/19/23 22:45 10/19/23 22:46 10/19/23 23:01 Temperature 98 F Temperature Source Pulse Rate 73 Pulse Rate [1 (Initial Baseline)] 89 Pulse Rate [2] 103 H Pulse Rate [3] 90 Respiratory Rate 16 Respiratory Rate [1 (Initial Baseline)] 84 H Respiratory Rate [2] 18 Respiratory Rate [3] 17 Blood Pressure 128/88 H Blood Pressure [1 (Initial Baseline)] 128/76 H Blood Pressure [2] 154/94 H Blood Pressure [3] 141/84 H Blood Pressure Mean Pulse Ox 97 Oxygen Delivery Method Room Air Room Air Oxygen Delivery Method [1 (Initial Baseline)] Nasal Cannula Oxygen Delivery Method [2] Nasal Cannula Oxygen Delivery Method [3] Nasal Cannula Oxygen Flow Rate (L/min) [1 (Initial Baseline)] 2 Oxygen Flow Rate (L/min) [2] 2 10/19/23 23:06 10/19/23 23:11 Temperature Temperature Source Pulse Rate Pulse Rate [1 (Initial Baseline)] Pulse Rate [2] Pulse Rate [3] Respiratory Rate Respiratory Rate [1 (Initial Baseline)] Respiratory Rate [2] Respiratory Rate [3] Blood Pressure Blood Pressure [1 (Initial Baseline)] Blood Pressure [2] Blood Pressure [3] Blood Pressure Mean Pulse Ox Oxygen Delivery Method Room Air Room Air Oxygen Delivery Method [1 (Initial Baseline)] Oxygen Delivery Method [2] Oxygen Delivery Method [3] Oxygen Flow Rate (L/min) [1 (Initial Baseline)] Oxygen Flow Rate (L/min) [2] Weight Weight: 132 lb 11.2 oz Body Mass Index (BMI) 26.8 Imaging Radiology Impression Elbow X-Ray 10/19/23 19:15 IMPRESSION: Recurrent dislocation. Small fracture fragment. Electronically Signed: Nathen Ross MD at 19:52 EDT , Elbow X-Ray 10/19/23 22:50 IMPRESSION: Persistent elbow dislocation. Electronically Signed: Nathen Ross MD at 23:17 EDT , Assessment & Plan Assessment/Plan (1) Closed traumatic posterior dislocation of left elbow joint: PLAN: 33 yr F with persistent elbow instability after closed reduction. rare problem about 1% of elbow instability. would need to be prepared with hinged elbow external fixation to treat this, so for now splint and sling, and will have to check equipment and resources in the morning, but I suspect this would be better treated at a larger center with a higher volume surgeon as hinged elbow fixators are technically demanding. Will arrange as outpatient.
[2023-10-19] MEDS: Morphine 4 MG/ML Syringe 3 MG IV (23:28)
== END 2023-10-19 23:39 | disposition home or self-care (01) ==
PROVIDERS: Emergency Provider Emergency Medicine; PCP Nurse Practitioner Primary Care; Visit Provider Emergency Medicine
DX: S53.125D Posterior dislocation of left ulnohumeral joint, subsequent encounter (principal); Z79.891 Long term (current) use of opiate analgesic; Y93.66 Activity, soccer
CPT/HCPCS: 73070; 96374; 99284; J7030; A4216